=== PATIENT | male | born 1960 | race African-American/Black ===

== ENCOUNTER 2022-03-21 19:27 | Emergency (ER) | payer OTHER ==
[2022-03-21 20:16] VITALS: BP 156/97; PULSE 99; RESP 20; TEMP 98.6; BMI 26.4
[2022-03-21] MEDS ORDERED: LIDOCAINE 5% TOPICAL PATCH TP ONE (20:41)
[2022-03-21] MEDS ORDERED: KETOROLAC TROMETHAMINE 30 MG/1 ML VIAL IM ONE (20:41)
[2022-03-21] MEDS ORDERED: METHOCARBAMOL 500 MG TABLET PO ONE (20:42)
[2022-03-21] MEDS ORDERED: LIDOCAINE 5% TOPICAL PATCH ONE (20:50)
[2022-03-21] MEDS ORDERED: METHOCARBAMOL 500 MG TABLET ONE (20:50)
[2022-03-21] MEDS ORDERED: LIDOCAINE PATCH REMOVAL MC SCH (22:00)
== END 2022-03-21 22:16 | disposition home or self-care (01) ==
LOC: JERFT 19:27 → JER 19:27 → JERFT 22:16
PROC: 3E0233Z Introduction of Anti-inflammatory into Muscle, Percutaneous Approach (ICD-10-PCS; principal; 2022-03-21)
DX: M25.562 Pain in left knee (principal)
CPT/HCPCS: 73562-TC-LT-FY; 99284-25